=== PATIENT | male | born 1950 | race Hispanic/Latino ===

== ENCOUNTER 2019-07-30 08:10 | Day surgery (SDC) | payer OTHER ==
[~2019-07-30 08:10] MED LIST: NACL 0.9% 1000 ML 1,000 ML IV SCH
--- NOTE | 2019-07-30 09:48 | Anesthesia Consultation ---
Anesthesia Consult and Med Hx Date of service: 07/30/19 - Airway Anesthetic Teeth Evaluation: Crowns ROM Head & Neck: Adequate Mental/Hyoid Distance: Adequate Mallampati Class: Class II Intubation Access Assessment: Probably Good - Pulmonary Exam CTA: Yes - Cardiac Exam Cardiac Exam: RRR - Pre-Operative Health Status ASA Pre-Surgery Classification: ASA2, ASA3 Proposed Anesthetic Plan: MAC - Pulmonary Hx Asthma: Yes Hx Sleep Apnea: Yes - Cardiovascular System Hx Hypertension: Yes - Gastrointestinal Hx Gastroesophageal Reflux Disease: Yes (One year ago) - Other Systems Hx Alcohol Use: Yes - Additional Comments Anesthesia Medical History Comments: No known anesthesia complications
--- NOTE | 2019-07-30 09:49 | Anesthesia Day of Surgery ---
Anesthesia Day of Surgery - Day of Surgery Patient Examined: Yes Patient H&P Reviewed: Yes Patient is NPO: Yes
[2019-07-30] MEDS ORDERED: ZOFRAN ONE (09:52)
[2019-07-30] MEDS ORDERED: SUBLIMAZE ONE (09:53)
[2019-07-30] MEDS ORDERED: DIPRIVAN 10 MG/ML IV ONE ×2 (09:53)
[2019-07-30] MEDS ORDERED: XYLOCAINE 2% UROJET ONE (10:15)
[2019-07-30] MEDS ORDERED: XYLOCAINE 2% UROJET UR ONE (10:16)
--- NOTE | 2019-07-30 10:36 | Procedure Note ---
Date of procedure: 07/30/19 Pre-op diagnosis: GERD/ Colon Polyp Screening/Hematochezia Post-op diagnosis: other (Moderate,Hyacinth Esophagitis/Mild,Distal Erosive Esophagitis/Gastritis/Duodenitis/Hematochezia secondary Moderate,Internal Hemorrhoids with Banding of 4 Hemorrhoids/Moderate,Left Colon Diverticular D isease/Several Small Rectal Polyps (possibly Hyperplastic)) Procedure: EGD with Biopsy/Colonoscopy with Biopsy/Flex Sigmoidoscopy with Banding x 4 Anesthesia: MAC Surgeon: CAMILA ABBOTT Estimated blood loss: minimal Pathology: list Specimen disposition: to lab Condition: stable Disposition: same day (Treat with Fluconazole,PPI and analgesic. Encourage fiber intake and avoid aspirin and NSAID and anticoagulants for 4 days, otherwise resume home medication. Follow up in 1 to 2 weeks ([phone]).)
--- NOTE | 2019-07-30 10:44 | Operative Report ---
PROCEDURE: Esophagogastroduodenoscopy with biopsy. INDICATIONS: This is a 69-year-old white male who had an EGD done because of GERD symptoms. EGD was done after getting informed consent with MAC anesthesia. Instrument was passed through the hypopharynx into the esophagus, which showed whitish plaques suggestive of moderate Hyacinth esophagitis. Photo documentation and biopsy was done. There was some mild distal erosive esophagitis, ulcer noted. The stomach showed gastritis. Biopsy was done from the gastric body, gastric antrum, and angular incisura to rule out for H. pylori and atrophic gastritis. The pylorus was patent. The duodenum in the bulb showed duodenitis. There was no evidence of any peptic ulcer disease noted. There was minimal bleeding from the biopsy sites. No complications associated with the procedure. ASSESSMENT: Gastroesophageal reflux disease symptoms, moderate Hyacinth esophagitis, mild distal erosive esophagitis, gastritis and duodenitis. PLAN: To treat the patient with PPI as well as fluconazole. Have the patient avoid aspirin and aspirin-related products for the next few days and follow up in the office in 1-2 weeks' time. A colonoscopy and possible flex sig with banding will also be done. DESCRIPTION OF PROCEDURE: The procedure was done in the GI lab with assistance of the GI lab team, which included Clair VIVAR and Sofie sharma as well as with the assistance of anesthesia. JOB# [id number] AMADO/TARIQ
--- NOTE | 2019-07-30 10:48 | Operative Report ---
PROCEDURE: Colonoscopy with biopsy. INDICATIONS: This is a 69-year-old white male who had an EGD done prior to the colonoscopy, which showed presence of moderate Hyacinth esophagitis and mild distal erosive esophagitis as well as gastritis and duodenitis. Colonoscopy was done as part of colon polyp screening and also because of his complaints of hematochezia. Initial rectal exam was unremarkable. Instrument was passed through the rectum onto the cecum, which was identified by ileocecal valve and the appendiceal orifice. Visualization was fair to good. Cecum, ascending colon, and transverse colon showed normal mucosa. There was moderate diverticular disease involving the left colon and several small polyps noted in the rectum, possibly hyperplastic that were removed by cold biopsy. The rectum showed moderate internal hemorrhoid, which may have been the cause of the patient's hematochezia and the patient is to require flexible sigmoidoscopy with banding for further treatment of that condition. There was minimal bleeding from the biopsy sites and no complications associated with the procedure. ASSESSMENT: Colon polyp screening, a few rectal polyps, possibly hyperplastic, hematochezia secondary to moderate internal hemorrhoids, moderate diverticular disease involving the left colon. PLAN: Plan is to encourage the patient to take fiber supplements, avoid aspirin and aspirin-related products for the next few days and to do a flexible sigmoidoscopy with banding for treatment of the patient's hematochezia. The patient will be encouraged to take fiber supplements and follow up in the office in 1-2 weeks' time. The procedure was done in the GI lab with assistance of the GI lab team, which included RN, Clair Lugo; Sofie sharma as well as with the assistance of anesthesia. JOB# [id number] AMADO/TARIQ
--- NOTE | 2019-07-30 10:51 | Operative Report ---
PROCEDURE: Flexible sigmoidoscopy with banding x 4. INDICATIONS: The patient had an EGD and a colonoscopy done prior to this procedure. The procedure was done after getting informed consent with MAC anesthesia. The EGD scope with the banding apparatus was introduced through the rectum and retroflexed, 4 of the largest hemorrhoids were then suctioned into the suction channel and band was applied to each of the 4 largest internal hemorrhoids. On 1 hemorrhoid, there were 2 bands that were applied and at the end of the procedure, lidocaine gel was applied to the rectal vault. ASSESSMENT: Hematochezia secondary to internal hemorrhoids, status post banding x 4 of the largest hemorrhoids with application of 5 bands, minimal bleeding was associated with the procedure. No complications associated with the procedure. Procedure was done in the GI lab with assistance of the GI lab team, which included RNClair as well as a Sofie sharma and the assistance of anesthesia. The patient will be given some analgesics, Lortab 5 to take if needed. He will also be treated with fluconazole because of the presence of moderate Hyacinth esophagitis is noted on the EGD and PPI and also encouraged to take fiber supplements and follow up in the office in 1-2 weeks' time. The patient will be asked to avoid aspirin and aspirin-related products for the next 4 days, but otherwise resume other medications. JOB# [id number] AMADO/TARIQ
[2019-07-30 11:25] VITALS: BP 139/72
--- NOTE | 2019-07-30 13:58 | Post Anesthesia Evaluation ---
- Post Anesthesia Evaluation Patient Participated: Yes Airway Patent: Yes Stable Respiratory Function: Yes Nausea/Vomiting: No Temp > 96.8F: Yes Pain Manageable: Yes Adequeate Hydration: Yes Anesthesia Complications: No Block Receding Appropriately: Not Applicable
== END 2019-07-30 08:11 | disposition home or self-care (01) ==
LOC: GIO 08:10
DX: K92.1 Melena (principal); K29.50 Unspecified chronic gastritis without bleeding; K62.1 Rectal polyp; K21.0 Gastro-esophageal reflux disease with esophagitis; K64.8 Other hemorrhoids; K57.30 Diverticulosis of large intestine without perforation or abscess without bleeding; K29.80 Duodenitis without bleeding; E78.00 Pure hypercholesterolemia, unspecified; I10 Essential (primary) hypertension; J45.909 Unspecified asthma, uncomplicated; G47.30 Sleep apnea, unspecified; Z86.010 Personal history of colon polyps; Z79.899 Other long term (current) drug therapy; Z87.891 Personal history of nicotine dependence; Z88.8 Allergy status to other drugs, medicaments and biological substances; Z72.89 Other problems related to lifestyle
CPT/HCPCS: 43239; 45380; 46221; 88305; 88312; 88342; J2405; J2704; J3010; J7030